=== PATIENT | female | born 1995 | race Caucasian/White ===

== ENCOUNTER 2020-07-08 16:16 | Emergency (ER) | payer BC ==
[2020-07-08 18:58] LABS: HEMOGLOBIN 14.7 gm/dl (12.3-15.3); RED BLOOD COUNT 5.48 M/UL (4.00-5.10); WHITE BLOOD COUNT 3.8 K/UL (4.5-11.0)
[2020-07-08 19:24] LABS: BUN/CREATININE RATIO 13 (0-10)
[2020-07-08] MEDS ORDERED: PROAIR HFA8.5 GM INH (20:11)
[2020-07-08] MEDS ORDERED: FLOVENT 110 MC7.9 GM INH (20:11)
[2020-07-08] MEDS ORDERED: ZITHROMAX250 MG PO (20:11)
== END 2020-07-08 23:05 | disposition home or self-care (01) ==
LOC: ER1 16:16
PROVIDERS: Physician Assistant
DX: U07.1 COVID-19 (principal); J12.82 Pneumonia due to coronavirus disease 2019; R79.89 Other specified abnormal findings of blood chemistry
CPT/HCPCS: 71045; 80053; 83605; 85025; 87081; 87880; 93005; 99284; M0239